=== PATIENT | female | born 1985 | race Caucasian/White ===

== ENCOUNTER 2016-06-12 11:37 | Emergency (ER) | payer BC ==
[2016-06-12] MEDS ORDERED: Benzoin Compound STICK ONE (12:23)
[2016-06-12 12:36] VITALS: BP 141/90
--- NOTE | 2016-06-12 12:41 | UC ---
Laceration HPI - HPI Summary HPI Summary: patient admits to self cutting, went to deep yesterday morning and cut through to adipose tissue. it is well approximated and bleeding is controlled. - History Of Current Complaint Chief Complaint: UCLaceration Stated Complaint: ARM LAC Time Seen by Provider: 06/12/16 12:35 Hx Obtained From: Patient Laceration Location: Arm Mechanism Of Injury: Sharp Trauma Onset/Duration: Sudden Onset, Lasting Days - 28 hours Severity: Moderate Pain Intensity: 5 Pain Scale Used: 0-10 Numeric Aggravating Factors: Movement - Allergies/Home Medications Allergies/Adverse Reactions: Allergies Allergy/AdvReac Type Severity Reaction Status Date / Time Amoxicillin Allergy Hives Verified 06/12/16 12:37 Home Medications: Home Medications Amphetamine MIXED SALTS TAB* [Adderall TAB*] 20 mg PO TID 06/12/16 [History Confirmed 06/12/16] PMH/Surg Hx/FS Hx/Imm Hx Previously Healthy: Yes - Family History Known Family History: Positive: Hypertension Review of Systems Constitutional: Negative Skin: Other - 7 cm laceration in right forearm Eyes: Negative ENT: Negative Cardiovascular: Negative Gastrointestinal: Negative Genitourinary: Negative Motor: Negative Neurovascular: Negative Musculoskeletal: Negative Neurological: Negative Psychological: Depressed, Other - some manic episodes in the past All Other Systems Reviewed And Are Negative: Yes Physical Exam Triage Information Reviewed: Yes Appearance: Well-Appearing, Well-Nourished, Pain Distress Vital Signs Reviewed: Yes Eye Exam: Normal Eyes: Positive: Conjunctiva Clear ENT Exam: Normal ENT: Positive: Normal ENT inspection, Hearing grossly normal, Pharynx normal, TMs normal Dental Exam: Normal Neck exam: Normal Neck: Positive: Supple, Nontender, No Lymphadenopathy Respiratory Exam: Normal Respiratory: Positive: Chest non-tender, Lungs clear, Normal breath sounds Cardiovascular Exam: Normal Cardiovascular: Positive: RRR, No Murmur, Pulses Normal Abdominal Exam: Normal Abdomen Description: Positive: Nontender, No Organomegaly, Soft Bowel Sounds: Positive: Present Musculoskeletal Exam: Normal Musculoskeletal: Positive: Strength Intact, ROM Intact, No Edema Neurological Exam: Normal Neurological: Positive: Alert, Muscle Tone Normal Psychological: Positive: Other: - very manic in appearance, giggling, laughing about her actions admits to suicicial ideation Skin: Positive: Other - 7 cm laceration on right forearm Laceration Repair - Laceration Repair 1 Laceration Size After Repair: Length (cm) - 7 Modified For Repair: No Cleansing Completed Via Routine Prep: Yes Irrigation With Pressure Irrigation Device: Yes Closure Material: SteriStrips - 6 Closure Method: Single Layer Suture Of: Skin Laceration Course/Dx - Course/Dx Course Of Treatment: hx obtained, exam performed, meds reviewed, laceration cleaned and repaired, shot of Rochephin, deferred to dr Davenport for mental health evaluation, patient admits to thoughts of suicidal thoughts daily. - Differential Dx - Laceration/Wound Differental Diagnoses: Cellulitis, Laceration, Puncture Wound, Tendon Laceration Provider Diagnoses: self mutilation. suicidial thoughts. laceration simple Discharge - Discharge Plan Condition: Stable Disposition: TRANS HIGHER LVL OF CARE FAC Patient Education Materials: Laceration Without Closure (ED) Referrals: Alina Elias MD [Primary Care Provider] - Additional Instructions: you have received rocephin to prevent infection. Keep the cut clean, allow the steri strips to fall off on their own. Take care of yourself!!!
[2016-06-12] MEDS ORDERED: cefTRIAXone VIAL(*) 1,000 MG VIAL IM ONE (12:44)
[2016-06-12] MEDS ORDERED: Lidocaine 1% MPF* 2 ML VIAL ONE (12:51)
--- NOTE | 2016-06-12 16:09 | UC ---
pilo Rios Timothy, scribed for Caitie Davenport MD on 06/12/16 at 1249 . Psychiatric Complaint HPI - HPI Summary HPI Summary: Cha Cardona is a 30 yo female presenting to [facility] with daily SI, with no plan. She is appearing with lacerations to her right forearm, which she inflicted to herself 06/11/16 morning. She states she has been depressed since age 8, but states she would not actually commit suicide. She states cutting helps her to cope, and thinking about suicide also helps her cope with her depression. She is , and lives with her parents. Her younger sister attempted suicide, and her mother is depressed. She saw a psychologist in high school who prescribed her antidepressants which she never took. She states that the variation between her "highs and lows" allow her to appreciate her highs that much more. She currently has a psychiatrist, Dr. Montano Member. He has prescribed her adderall, which she does not take the full dosage of. - History Of Current Complaint Chief Complaint: UCLaceration Stated Complaint: ARM LAC Time Seen by Provider: 06/12/16 12:35 Hx Obtained From: Patient, Family/Convention Planner - Hx Last Menstrual Period: N/A Onset/Duration: Gradual Onset, Lasting Weeks, Still Present Timing: Constant Severity Initially: Moderate Severity Currently: Moderate Character: Depressed Aggravating Factor(s): Nothing Alleviating Factor(s): Nothing Related History: Positive For: Prior Psychiatric Issues - depression Has Suicidal: Thoughts - Risk Factor(s) Completed Suicide Risk Factors: White [place] - Allergies/Home Medications Allergies/Adverse Reactions: Allergies Allergy/AdvReac Type Severity Reaction Status Date / Time Amoxicillin Allergy Hives Verified 06/12/16 12:37 Home Medications: Home Medications Amphetamine MIXED SALTS TAB* [Adderall TAB*] 3 PRN 06/12/16 [History] PMH/Surg Hx/FS Hx/Imm Hx Psychological History Of: Reports: Depression - Surgical History Surgical History: Yes Surgery Procedure, Year, and Place: HERNIA REPAIR - Family History Known Family History: Positive: Other - depression, suicidal attempt - Social History Lives: With Family Alcohol Use: Weekly Substance Use Type: None Smoking Status (MU): Never Smoked Tobacco Review of Systems Constitutional: Negative Skin: Other - self inflicted laceration Eyes: Negative ENT: Negative Respiratory: Negative Cardiovascular: Negative Gastrointestinal: Negative Genitourinary: Negative Motor: Negative Neurovascular: Negative Musculoskeletal: Other: - laceration on right forearm Neurological: Negative Psychological: Depressed - SI All Other Systems Reviewed And Are Negative: Yes Physical Exam Triage Information Reviewed: Yes Appearance: No Pain Distress, Well-Nourished, Ill-Appearing Vital Signs: Initial Vital Signs Temp 100.0 F 06/12/16 12:25 Pulse 77 06/12/16 12:25 Resp 20 06/12/16 12:25 BP 141/90 06/12/16 12:25 Pulse Ox 100 06/12/16 12:25 Vital Signs Reviewed: Yes Eyes: Positive: Conjunctiva Clear ENT: Positive: Hearing grossly normal. Negative: Muffled/hoarse voice Neck: Positive: Supple, Nontender Respiratory: Positive: Chest non-tender, Lungs clear, Normal breath sounds, No respiratory distress Cardiovascular: Positive: RRR, No Murmur, Pulses Normal, Brisk Capillary Refill Musculoskeletal: Positive: Strength Intact, ROM Intact Neurological: Positive: Alert, Muscle Tone Normal Psychological: Positive: Normal Response To Family Skin Exam: Other - 7 cm laceration on her right forearm Psych Complaint Course/Dx - Course Course Of Treatment: Cha Cardona is a 30 yo female presenting to [facility] with SI and laceration on her right arm. After discussion with Pt, she agreed to go to [facility] by ambulance for mental health evaluation. Her was brought in room and the situation was explained to him. They both had their questions answered. - Differential Dx/Diagnosis Differential Diagnosis/HQI/PQRI: Bipolar Disorder, Depression, Suicidal Ideation Provider Diagnoses: Suicidal ideation. self inflicted laceration - Physician Notifications Discussed Patient Care With: 1253 - Fauzia Esteban (PA at [facility]) - discussed PT condition, agrees to see Pt in ED and medically clear for mental health evaluation. 1256 - [facility] - discussed Pt condition and requested emergency medical transport. 101 - [place] (behavorial specialist non food receiving clerk) - discussed Pt condition per protocol, agrees to evaluate Pt in [facility] Instructed by Provider To: MD Will See In ED Discharge - Discharge Plan Condition: Stable Disposition: TRANS HIGHER LVL OF CARE FAC Discharge Disposition Comment: transferred to [facility] for mental health unit evaluation Patient Education Materials: Laceration Without Closure (ED) Referrals: Alina Elias MD [Primary Care Provider] - Additional Instructions: you have received rocephin to prevent infection. Keep the cut clean, allow the steri strips to fall off on their own. Take care of yourself!!! The documentation as recorded by the pilo wise Timothy accurately reflects the service I personally performed and the decisions made by me, Caitie Davenport MD.
== END 2016-06-12 13:19 | disposition short-term general hospital (02) ==
LOC: UCEAST 11:37
DX: S51.811A Laceration without foreign body of right forearm, initial encounter (principal); X78.9XXA Intentional self-harm by unspecified sharp object, initial encounter; Y93.9 Activity, unspecified; Y92.9 Unspecified place or not applicable; R45.851 Suicidal ideations; Z88.0 Allergy status to penicillin; F32.9 Major depressive disorder, single episode, unspecified
CPT/HCPCS: 12002; 96372; 99203; G0463; J0696

== ENCOUNTER 2016-06-12 13:36 | Inpatient (IN) | payer BC ==
[2016-06-12] MEDS ORDERED: ALPRAZolam TAB* 0.5 MG PO ONE (15:07)
[2016-06-12 16:10] LABS: Urine Bilirubin Negative (Negative); Urine Glucose Negative (Negative); Urine Nitrite Negative (Negative)
[2016-06-12 16:29] LABS: Benzodiazepine Urine Screen None Detected (None Detect)
[2016-06-12 17:18] LABS: Hematocrit 39 % (35-47); Mean Corpuscular HGB Conc 33 g/dl (31-36); Mean Corpuscular Hemoglobin 32 pg (27-31); Mean Corpuscular Volume 97 fL (80-97); Mean Platelet Volume 8 um3 (7.4-10.4); Red Blood Count 4.01 10^6/ul (4.0-5.4); Red Cell Distribution Width 13 % (10.5-15); White Blood Count 8.2 10^3/ul (3.5-10.8)
[2016-06-12 17:35] LABS: ALT 10 U/L (7-52); AST 17 U/L (13-39); Alkaline Phosphatase 33 U/L (34-104); Anion Gap 4 mmol/L (2-11); BUN/Creatinine Ratio 14.5 (8-20); Blood Urea Nitrogen 10 mg/dL (6-24); CO2 Carbon Dioxide 27 mmol/L (22-32); Calcium 9.1 mg/dL (8.6-10.3); Chloride 104 mmol/L (101-111); EGFR African American 129.4 (>60); EGFR Non-African American 100.6 (>60); Globulin 2.9 g/dL (2-4); Glucose 82 mg/dL (70-100); Potassium 3.4 mmol/L (3.5-5.0); Sodium 135 mmol/L (133-145); Total Protein 6.9 g/dL (6.4-8.9)
[2016-06-12 18:01] LABS: Acetaminophen < 15 mcg/mL; Alcohol < 10 mg/dL (<10); Salicylate < 2.50 mg/dL (<30)
[2016-06-12 18:11] LABS: TSH (Thyroid Stimulating Horm) 0.94 mcIU/mL (0.34-5.60)
[2016-06-13] MEDS ORDERED: Al Hydrox/Mg Hydrox/Simet LIQ* 30 ML UDC PO PRN (05:37)
[2016-06-13] MEDS ORDERED: Acetaminophen TAB* 325 MG PO PRN (05:37)
[2016-06-13 07:54] VITALS: BP 140/86
--- NOTE | 2016-06-13 08:06 | ED ---
Issac Rios Adam, scribed for Rubén Fraire MD on 06/12/16 at 1622 . Psychiatric Complaint - HPI Summary HPI Summary: 30 year old female arrived to [facility] from Critical Care due to suicidal ideation. She reports visiting critical care due to a self-inflicted, superficial laceration on her right arm that was sutured. She describes often feeling "up and down," and "enjoying the pain of the downs". She currently does not take any medications. - History Of Current Complaint Hx Obtained From: Patient Hx Last Menstrual Period: N/A Onset/Duration: Gradual Onset Timing: Intermittent Episode Lasting Severity Initially: Moderate Severity Currently: Moderate Aggravating Factor(s): Nothing Has Suicidal: Reports: Thoughts - Allergies/Home Medications Allergies/Adverse Reactions: Allergies Allergy/AdvReac Type Severity Reaction Status Date / Time Amoxicillin Allergy Hives Verified 06/12/16 12:37 PMH/Surg Hx/FS Hx/Imm Hx - Surgical History Surgery Procedure, Year, and Place: HERNIA REPAIR - Family History Known Family History: Positive: Hypertension - Social History Alcohol Use: Weekly - patient reports drinking excessively last night Substance Use Type: Reports: None Smoking Status (MU): Never Smoked Tobacco Review of Systems Negative: Fever, Chills Negative: Erythema Negative: Sore Throat Negative: Chest Pain Negative: Shortness Of Breath, Cough Negative: Abdominal Pain, Vomiting, Nausea Negative: dysuria, hematuria Negative: Myalgia, Edema Negative: Rash Neurological: Other - no dizziness All Other Systems Reviewed And Are Negative: Yes Physical Exam - Summary Physical Exam Summary: Constitutional: Well-developed, Well-nourished, Alert. (-) Distressed Skin: Warm, Dry HENT: Normocephalic; Atraumatic Eyes: Conjunctiva normal Neck: Musculoskeletal ROM normal neck. (-) JVD, (-) Stridor, (-) Tracheal deviation Cardio: Rhythm regular, rate normal, Heart sounds normal; Intact distal pulses; The pedal pulses are 2+ and symmetric. Radial pulses are 2+ and symmetric. (-) Murmur Pulmonary/Chest wall: Effort normal. (-) Respiratory distress, (-) Wheezes, (-) Rales Abd: Soft, (-) Tenderness, (-) Distension, (-) Guarding, (-) Rebound Musculoskeletal: (-) Edema Lymph: (-) Cervical adenopathy Neuro: Alert, Oriented x3 Psych: Mood and affect Normal Triage Information Reviewed: Yes Vital Signs Reviewed: Yes Course/Dx - Differential Dx/Clinical Impression Provider Diagnosis: Cutting behavior, Suicidal ideation Discharge - Discharge Plan Condition: Stable Disposition: OTHER Discharge Disposition Comment: pending mental health evaluation Referrals: Alina Elias MD [Primary Care Provider] - The documentation as recorded by the Issac wise Adam accurately reflects the service I personally performed and the decisions made by me, Rubén Fraire MD.
[2016-06-13] MEDS ORDERED: IRON PO SCH (09:00)
[2016-06-13] MEDS ORDERED: Vitamin THERAPEUTIC TAB PO SCH (09:00)
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
--- NOTE | 2016-06-13 17:03 | DS ---
DATE OF ADMISSION: 06/12/2016. DATE OF DISCHARGE: 06/13/2016. DISCHARGE DIAGNOSES: AXIS I: Unspecified mood disorder; cocaine use disorder. AXIS II: Deferred. AXIS III: History of anemia. AXIS IV: Moderate, primary support stressors. AXIS V: At the time of admission was 55 and at the time of discharge is 60. CONDITION AT THE TIME OF DISCHARGE: Stable. The patient is steadfastly denying suicidal ideations. Both her and her agree that she is safe and that she is not requiring further involuntary inpatient care. She is agreeable to following up with Dr. Manley, whom I have spoken with and he is agreeable to following up with her as well. Her affect is quite bright and I do not believe that I have any legal justification to keep her any further. MENTAL STATUS EXAM: The patient is a young, white female with long brown hair which is shaved on on e side. She is wearing all black clothing. She is friendly, easy to establish a rapport with. She has a bright affect. Mood is euthymic. Thought process is linear and goal-directed. Thought jim nt is significant for her desire to leave the hospital. She denies suicidal or homicidal ideations. She denies auditory or visual hallucinations. Insight and judgment would appear to be fair given her willingness to follow-up with Dr. Manley as an outpatient. Cognitively, she is awake and alert w ith what would appear to be an average intellect. DISCHARGE INSTRUCTIONS TO THE PATIENT: A. Medications: She takes iron sulfate 325 mg p.o. daily. B. Diet: Regular. C. Activities: As tolerated. The patient is a nonsmoker. D. Follow-up care: The patient will follow-up with Dr. Dusty Manley within seven days discharge. HOSPITAL COURSE - PART A: Reason for admission: The patient is a 30-year-old, , white female with a remote history of eating disorders and a more recent history of cocaine abuse who arrived at our hospital requiring treatment for a self-inflicted laceration to her right upper arm following a disagreement with her . While in the evaluation area, she did admit to suicidal ideations w ithout plan and they felt that she warranted admission for further work-up of this. The patient den ies that she is actively suicidal, stating that she only does this one to two times per year and it is not with the intent of ending her life. Her is present and indicates that he also feels that this was a misunderstanding and that she is not requiring inpatient treatment. I note that she takes Adderall for attention deficit disorder which is prescribed by Dr. Manley and Dr. Manley was contacted and is willing to continue treating her, although he may discontinue Adderall on the basis of her ongoing drug use. At any rate, both the patient, her , and Dr. Manley feel that ther e are no ongoing security risks and the patient is declining any further inpatient treatment. HOSPITAL COURSE - PART B: Psychiatric treatment rendered: The patient was admitted to the [facility] Unit where she was placed on q.30 minute checks. We had the interaction in person wi th her who vouched for her safety and we did speak with Dr. Manley who agreed to continue fo llowing up with her in the outpatient setting. No medications were started other than her routine i nicole and her Adderall was held due to the fact that she has illegal substances in her urine. The [facility] drug screen was positive for cocaine, but no other substances of abuse and the patient is stating that she uses this approximately once per month recreationally. Despite this, she is declining sub stance abuse treatment feeling that this is not a problem for her. The patient is discharged in sta ble condition. [id number]/[facility] #: [id number]
[2016-06-13] MEDS ORDERED: traZODone TAB* 50 MG TAB PO SCH (21:00)
== END 2016-06-13 15:00 | disposition home or self-care (01) | DRG 753 ==
LOC: ED 13:36 → BSU 21:32
PROVIDERS: ADMIT Psychiatry & Neurology Psychiatry; ATTEND Psychiatry & Neurology Psychiatry
DX: F39 Unspecified mood [affective] disorder (principal); R45.851 Suicidal ideations; F90.9 Attention-deficit hyperactivity disorder, unspecified type; F14.10 Cocaine abuse, uncomplicated; D50.9 Iron deficiency anemia, unspecified; S51.811A Laceration without foreign body of right forearm, initial encounter; X78.9XXA Intentional self-harm by unspecified sharp object, initial encounter; Z81.8 Family history of other mental and behavioral disorders; Z88.1 Allergy status to other antibiotic agents; Z79.899 Other long term (current) drug therapy; Y92.9 Unspecified place or not applicable
CPT/HCPCS: 12002; 36415; 80053; 80307; 80320; 80329; 81003; 84443; 85025; 96372; 99203; 99238; A9270-GY; G0463; G0480; J0696